=== PATIENT | female | born 1990 | race Caucasian/White ===

== ENCOUNTER 2021-01-21 06:41 | Observation (INO) | payer MEDICARE, MEDICAID ==
[2021-01-21] MEDS ORDERED: Morphine 4 MG/ML VIAL ONE (07:24)
[2021-01-21] MEDS ORDERED: Ketorolac Tromethamine 30 MG/ML VIAL ONE (07:24)
[2021-01-21] MEDS ORDERED: Ondansetron PF 4 MG/2 ML Vial ONE (07:24)
[2021-01-21 08:07] LABS: #Basophils 0.1 thou/uL (0.0-0.2); #Eosinphils 0.1 thou/uL (0.0-0.7); #Lymphocytes 3.2 thou/uL (1.20-3.40); #Monocytes 1.4 thou/uL (0.11-0.59); #Neutrophils 9.4 thou/uL (1.40-6.50); %Eosinophils 0.5 % (0.0-10.0); %Lymphocytes 22.5 % (21.0-51.0); %Monocytes 10.1 % (0.0-10.0); %Neutrophils 65.9 % (42.0-75.0); Hemoglobin 12.5 g/dL (12.0-16.0); Mean Corpuscular HGB CONC 31.8 g/dL (32.0-36.0); Mean Corpuscular Volume 94.4 fL (78.0-98.0); Mean Platelet Volume 6.5 fL (7.4-10.4); Platelet Count 400 thou/uL (130-400); RBC Distribution Width 12.6 % (11.5-14.5); Red Blood Cell (RBC) Count 4.18 mill/uL (4.20-5.40); White Blood Cell (WBC) Count 14.2 thou/uL (4.8-10.8)
[2021-01-21 08:18] LABS: BHCG - Serum Negative (NEGATIVE); Pregs Control Background? CLEAR/WHITE (CLR/WHITE); Pregs Control Bar Appear? YES (CONTROL BAR)
[2021-01-21 08:26] LABS: Anion Gap 16 mmol/L (10-20); BUN (Urea Nitrogen) 17 mg/dL (7.0-18.7); Calc. Creatinine Clearance 0 mL/min (70-130); Carbon Dioxide 21 mmol/L (22-29); Chloride 106 mmol/L (98-107); Potassium 3.6 mmol/L (3.5-5.1); Sodium 139 mmol/L (136-145)
[2021-01-21 08:27] LABS: ALT (SGPT) 9 U/L (8-55); AST (SGOT) 12 U/L (5-34); Albumin 3.7 g/dL (3.5-5.0); Alkaline Phosphatase 57 U/L (40-110); Bilirubin, Total 0.3 mg/dL (0.2-1.2); Calcium 8.6 mg/dL (7.8-10.44); Glucose 86 mg/dL (70-105); Lipase 45 U/L (8-78); Magnesium 1.7 mg/dL (1.6-2.6); Protein, Total 6.7 g/dL (6.0-8.3)
[2021-01-21 08:53] LABS: Bacteria/HPF 4+ HPF (None Seen); Bilirubin Negative (Negative); Blood, Urine 2+ (Negative); Clarity Turbid (Clear); Glucose, Urine (Dipstick) Normal (Negative); Ketone, Urine Negative (Negative); Leukocyte 500 Leu/uL (Negative); Nitrite 1+ (Negative); Protein, Urine (Dipstick) 30 mg/dL (Neg-Trace); RBC/HPF 21-50 HPF (0-3); Specific Gravity, Urine 1.019 (1.002-1.036); WBC/HPF Greater than 50 HPF (0-3); pH, Urine 6.5 (5.0-9.0)
[2021-01-21 08:55] LABS: Pregnancy Test - Urine (BHCG) Negative (Negative); Pregu Control Background? CLEAR/WHITE (CLR/WHITE); Pregu Control Bar Appear? YES (CONTROL BAR); Specific Gravity 1.019 (1.002-1.036)
[2021-01-21] MEDS ORDERED: Iopamidol-370 76% 500 ML 1 ML ONE (09:09)
[2021-01-21] MEDS ORDERED: cefTRIAXone\\ROCEPHIN 2 GM VIAL ONE (09:40)
[2021-01-21] MEDS ORDERED: Zolpidem Tartrate 5 MG TAB PO PRN (11:47)
[2021-01-21] MEDS ORDERED: diphenhydrAMINE 50 MG/ML VIAL IVP PRN (11:47)
[2021-01-21] MEDS ORDERED: Hyoscyamine Sulfate SL 0.125 mg Tablet SL PRN (11:47)
[2021-01-21] MEDS ORDERED: Ondansetron PF 4 MG/2 ML Vial IVP PRN (11:47)
[2021-01-21 12:14] VITALS: BMI 24.3
[2021-01-21 13:36] LABS: SARS-CoV-2 NAA Rapid Test Not Detected (NotDetected)
[2021-01-21] MEDS ORDERED: FLU VACC QS2021-22(6MOS UP)/PF 60 MCG/0.5 ML SYRINGE IM ONE (13:45)
[2021-01-21] MEDS: Sodium Chloride 0.9% 1,000 ML IV SCH ×2 (13:53→22:33)
[2021-01-21] MEDS: Ketorolac Tromethamine 30 MG/ML VIAL IVP SCH ×2 (13:54→17:31)
[2021-01-21] MEDS: HYDROcodone/Acetaminophen 5/325 mg Tablet PO PRN ×2 (13:54→17:36)
[2021-01-21] MEDS: Pilocarpine 5 MG TAB PO SCH ×2 (17:31→21:34)
[2021-01-21] MEDS ORDERED: Famotidine/PF 20 mg/2ml Vial SLOW IVP SCH (21:00)
[2021-01-21] MEDS: Morphine 4 MG/ML VIAL SLOW IVP PRN (21:14)
[2021-01-21] MEDS: Docusate 100 MG CAP PO SCH ×2 (21:25→21:35)
[2021-01-21] MEDS: Gabapentin 300 MG CAP PO SCH ×2 (21:25→21:35)
[2021-01-21] MEDS ORDERED: Promethazine HCl 25 MG/ML VIAL IM PRN (22:11)
[2021-01-21] MEDS ORDERED: Bismuth Subs 17.5 mg/mL Susp PO PRN (22:13)
[2021-01-22] MEDS: Ketorolac Tromethamine 30 MG/ML VIAL IVP SCH ×5 (00:01→23:17)
[2021-01-22 06:11] LABS: INR-International Normal Ratio 1.8; Prothrombin Time 21.3 sec (12.0-14.7)
[2021-01-22 06:25] LABS: Band 24 % (5-11); Hemoglobin 11.7 g/dL (12.0-16.0); Lymphocytes 4 % (21-51); MDiff Complete? YES; Mean Corpuscular HGB CONC 30.7 g/dL (32.0-36.0); Mean Corpuscular Hemoglobin 29.4 pg (27.0-31.0); Mean Corpuscular Volume 95.9 fL (78.0-98.0); Mean Platelet Volume 6.7 fL (7.4-10.4); Monocytes 1 % (0-10); Neutrophil 71 % (42-75); Platelet Count 259 thou/uL (130-400); Platelet Morphology Comment Appears Adequate; RBC Distribution Width 12.6 % (11.5-14.5); RBC Morphology Normal; Red Blood Cell (RBC) Count 3.98 mill/uL (4.20-5.40); White Blood Cell (WBC) Count 9.7 thou/uL (4.8-10.8)
[2021-01-22] MEDS ORDERED: Iothalamate Meglumine 60% 50 ML VIAL FS ONE (06:44)
[2021-01-22] MEDS ORDERED: Fentanyl 100 MCG/2 ML VIAL ONE (06:54)
[2021-01-22] MEDS ORDERED: Levofloxacin 500 mg/D5W 100 ml Premix Bag ONE (07:14)
[2021-01-22] MEDS ORDERED: Midazolam HCl 2 mg/2 ml Vial ONE (07:22)
[2021-01-22] MEDS ORDERED: Ondansetron ODT 4 MG TAB ONE (07:22)
[2021-01-22] MEDS: Sodium Chloride 0.9% 1,000 ML IV SCH ×3 (07:26→23:26)
[2021-01-22] MEDS ORDERED: PROPOFOL 200 MG/20 ML VIAL ONE (07:34)
[2021-01-22] MEDS ORDERED: Rocuronium Bromide 10 MG/ML (10ML VIAL) ONE (07:34)
[2021-01-22] MEDS ORDERED: Lidocaine 1% PF 5 ML VIAL ONE (07:34)
[2021-01-22] MEDS ORDERED: Ondansetron PF 4 MG/2 ML Vial ONE (07:34)
[2021-01-22] MEDS ORDERED: Dexamethasone 20 MG/5 ML VIAL ONE (07:34)
[2021-01-22] MEDS ORDERED: Glycopyrrolate 0.2 MG/ML 5 ML SYRINGE ONE (07:34)
[2021-01-22] MEDS ORDERED: Esmolol 100 MG/10 ML VIAL ONE (08:26)
[2021-01-22] MEDS ORDERED: Hydroxychloroquine Sulfate 200 MG TAB PO SCH ×2 (09:00→23:00)
[2021-01-22] MEDS: NIFEdipine 10 MG CAP PO SCH (09:28)
[2021-01-22] MEDS: Docusate 100 MG CAP PO SCH ×2 (09:28→20:59)
[2021-01-22] MEDS: Pilocarpine 5 MG TAB PO SCH ×3 (09:29→20:59)
[2021-01-22] MEDS: Bupropion 150 MG XL TAB PO SCH (09:29)
[2021-01-22] MEDS: Aspirin 81 mg Enteric Coated Tablet PO SCH (09:29)
[2021-01-22] MEDS: Gabapentin 300 MG CAP PO SCH ×2 (09:29→20:59)
[2021-01-22] MEDS: Tamsulosin HCl 0.4 MG CAP PO SCH (09:29)
[2021-01-22] MEDS: methylPREDNISolone 4 mg Tablet PO SCH (09:29)
[2021-01-22] MEDS: medroxyPROGESTERone Acetate 5 MG TAB PO SCH (09:30)
[2021-01-22] MEDS: HYDROcodone/Acetaminophen 5/325 mg Tablet PO PRN (11:16)
[2021-01-22] MEDS ORDERED: Warfarin Sodium 3 MG TAB PO SCH ×2 (17:00)
[2021-01-22] MEDS: Morphine 4 MG/ML VIAL SLOW IVP PRN (21:01)
[2021-01-22] MEDS ORDERED: Cepastat Lozenges 1 LOZ PO PRN (22:26)
[2021-01-22] MEDS ORDERED: PARoxetine 20 MG TAB ONE ×2 (22:54→23:14)
[2021-01-23] MEDS: Morphine 4 MG/ML VIAL SLOW IVP PRN ×2 (04:03→08:22)
[2021-01-23 06:26] LABS: Prothrombin Time 22.6 sec (12.0-14.7)
[2021-01-23] MEDS: Ketorolac Tromethamine 30 MG/ML VIAL IVP SCH ×2 (06:42→11:09)
[2021-01-23] MEDS: Gabapentin 300 MG CAP PO SCH (08:18)
[2021-01-23] MEDS: NIFEdipine 10 MG CAP PO SCH (08:18)
[2021-01-23] MEDS: Aspirin 81 mg Enteric Coated Tablet PO SCH (08:18)
[2021-01-23] MEDS: medroxyPROGESTERone Acetate 5 MG TAB PO SCH (08:18)
[2021-01-23] MEDS: Docusate 100 MG CAP PO SCH (08:19)
[2021-01-23] MEDS: Bupropion 150 MG XL TAB PO SCH (08:19)
[2021-01-23] MEDS: methylPREDNISolone 4 mg Tablet PO SCH (08:19)
[2021-01-23] MEDS: Pilocarpine 5 MG TAB PO SCH ×2 (08:19→14:27)
[2021-01-23] MEDS: Tamsulosin HCl 0.4 MG CAP PO SCH (08:19)
[2021-01-23] MEDS ORDERED: Hydroxychloroquine Sulfate 200 MG TAB PO SCH (09:00)
[2021-01-23] MEDS: HYDROcodone/Acetaminophen 5/325 mg Tablet PO PRN (11:09)
[2021-01-23] MEDS: Sodium Chloride 0.9% 1,000 ML IV SCH (12:53)
[2021-01-23 15:00] VITALS: BP 142/82; TEMP 98.1
[2021-01-27 18:14] LABS: CA Oxalate Dihydrate 10 % (.); CA Oxalate Monohydrate 60 % (.); Color Tan (.); Stone Weight 23 mg (.)
== END 2021-01-23 14:40 | disposition home or self-care (01) ==
LOC: ERS 06:41 → ERHOLD 09:19 → INTOOBSV 09:19 → SURG B 12:53
PROVIDERS: ADMIT Urology; ATTEND Urology
PROC: 0TC48ZZ Extirpation of Matter from Left Kidney Pelvis, Via Natural or Artificial Opening Endoscopic (ICD-10-PCS; principal; 2021-01-22)
PROC: 0TC78ZZ Extirpation of Matter from Left Ureter, Via Natural or Artificial Opening Endoscopic (ICD-10-PCS; 2021-01-22)
PROC: 0T778DZ Dilation of Left Ureter with Intraluminal Device, Via Natural or Artificial Opening Endoscopic (ICD-10-PCS; 2021-01-22)
DX: N13.6 Pyonephrosis (principal); I73.00 Raynaud's syndrome without gangrene; M32.9 Systemic lupus erythematosus, unspecified; M35.00 Sjogren syndrome, unspecified; D68.61 Antiphospholipid syndrome; Z20.822 Contact with and (suspected) exposure to COVID-19; Z88.1 Allergy status to other antibiotic agents; Z88.2 Allergy status to sulfonamides; Z79.1 Long term (current) use of non-steroidal anti-inflammatories (NSAID); Z79.2 Long term (current) use of antibiotics; Z79.890 Hormone replacement therapy; Z79.01 Long term (current) use of anticoagulants; Z79.82 Long term (current) use of aspirin; Z79.52 Long term (current) use of systemic steroids; Z79.899 Other long term (current) drug therapy; Z89.511 Acquired absence of right leg below knee
CPT/HCPCS: 51701 ×2; 52356; 74177; 74420; 80053; 81025; 82365; 83690; 83735; 84703; 85025 ×2; 85610 ×2; 87077; 87086; 87186; 96365; 96367; 96375 ×2; 96376 ×3; 97139 ×2; 97530; 99285; C2617; G0378 ×4; Q9961; U0002; 36415; 81003; 81015; 88300; J0696; J1100; J1885; J1956; J2250; J2270; J2405; J2550; J2704; J3010; J7050; J7509; Q0162; Q9967

== ENCOUNTER 2021-01-24 13:34 | Emergency (ER) | payer MEDICARE, MEDICAID | END 2021-01-24 16:12 | disposition home or self-care (01) | LOC: ERS 13:34 | DX: M54.50 Low back pain, unspecified (principal); M53.3 Sacrococcygeal disorders, not elsewhere classified; W19.XXXA Unspecified fall, initial encounter | CPT/HCPCS: 72100; 72220 ==

== ENCOUNTER 2021-04-15 21:48 | Inpatient (IN) | payer MEDICARE, MEDICAID ==
[2021-04-15 22:42] LABS: #Basophils 0.1 thou/uL (0.0-0.2); #Eosinphils 0.2 thou/uL (0.0-0.7); #Lymphocytes 3.4 thou/uL (1.20-3.40); #Monocytes 1.4 thou/uL (0.11-0.59); #Neutrophils 13.2 thou/uL (1.40-6.50); %Basophils 0.6 % (0.0-1.0); %Lymphocytes 18.5 % (21.0-51.0); %Monocytes 7.6 % (0.0-10.0); %Neutrophils 72.3 % (42.0-75.0); Hemoglobin 11.1 g/dL (12.0-16.0); Mean Corpuscular HGB CONC 31.1 g/dL (32.0-36.0); Mean Corpuscular Hemoglobin 31.1 pg (27.0-31.0); Mean Platelet Volume 5.7 fL (7.4-10.4); Platelet Count 430 thou/uL (130-400); RBC Distribution Width 13.9 % (11.5-14.5); Red Blood Cell (RBC) Count 3.58 mill/uL (4.20-5.40); White Blood Cell (WBC) Count 18.2 thou/uL (4.8-10.8)
[2021-04-15 22:51] LABS: BHCG - Serum Negative (NEGATIVE); Pregs Control Background? CLEAR/WHITE (CLR/WHITE); Pregs Control Bar Appear? YES (CONTROL BAR)
[2021-04-15 23:01] LABS: INR-International Normal Ratio 18.2
[2021-04-15] MEDS ORDERED: diphenhydrAMINE 50 MG/ML VIAL ONE (23:06)
[2021-04-15] MEDS ORDERED: Metoclopramide HCl 10 MG/2 ML VIAL ONE (23:06)
[2021-04-15 23:54] LABS: ALT (SGPT) 13 U/L (8-55); AST (SGOT) 14 U/L (5-34); Albumin 3.3 g/dL (3.5-5.0); Alkaline Phosphatase 50 U/L (40-110); Anion Gap 15 mmol/L (10-20); BUN (Urea Nitrogen) 16 mg/dL (7.0-18.7); Bilirubin, Total 0.3 mg/dL (0.2-1.2); Calc. Creatinine Clearance 0 mL/min (70-130); Calcium 8.5 mg/dL (7.8-10.44); Carbon Dioxide 17 mmol/L (22-29); Chloride 110 mmol/L (98-107); Glucose 78 mg/dL (70-105); Potassium 3.8 mmol/L (3.5-5.1); Protein, Total 6.3 g/dL (6.0-8.3); Sodium 138 mmol/L (136-145)
[2021-04-16] MEDS ORDERED: Phytonadione 10 MG/ML AMP ONE (00:06)
[2021-04-16] MEDS ORDERED: Acetaminophen 325 MG TAB PO PRN ×2 (01:17→08:07)
[2021-04-16] MEDS ORDERED: Ondansetron ODT 4 MG TAB PO PRN (01:17)
[2021-04-16] MEDS ORDERED: Acetaminophen 650 MG Suppository PR PRN (01:17)
[2021-04-16] MEDS ORDERED: Ondansetron PF 4 MG/2 ML Vial IVP PRN (01:17)
[2021-04-16 01:35] LABS: Bilirubin Negative (Negative); Blood, Urine Negative (Negative); Clarity Clear (Clear); Glucose, Urine (Dipstick) Normal (Negative); Ketone, Urine Negative (Negative); Leukocyte Negative Leu/uL (Negative); Nitrite Negative (Negative); Protein, Urine (Dipstick) 20 mg/dL (Neg-Trace); Specific Gravity, Urine 1.036 (1.002-1.036); Urobilinogen Normal mg/dL (Less than 2); pH, Urine 6.5 (5.0-9.0)
[2021-04-16] MEDS ORDERED: Acetaminophen 325 MG TAB ONE (01:41)
[2021-04-16] MEDS ORDERED: Ondansetron ODT 4 MG TAB ONE (02:16)
[2021-04-16] MEDS ORDERED: Morphine 4 MG/ML VIAL SLOW IVP PRN (05:19)
[2021-04-16] MEDS ORDERED: Morphine 4 MG/ML VIAL ONE (06:00)
[2021-04-16 08:46] LABS: #Eosinphils 0.1 thou/uL (0.0-0.7); #Lymphocytes 1.9 thou/uL (1.20-3.40); #Neutrophils 15.2 thou/uL (1.40-6.50); %Basophils 0.2 % (0.0-1.0); %Eosinophils 0.6 % (0.0-10.0); %Lymphocytes 10.3 % (21.0-51.0); %Monocytes 5.6 % (0.0-10.0); %Neutrophils 83.3 % (42.0-75.0); Hemoglobin 11.1 g/dL (12.0-16.0); Mean Corpuscular HGB CONC 30.5 g/dL (32.0-36.0); Mean Corpuscular Hemoglobin 30.4 pg (27.0-31.0); Mean Corpuscular Volume 99.7 fL (78.0-98.0); Mean Platelet Volume 5.6 fL (7.4-10.4); Platelet Count 425 thou/uL (130-400); RBC Distribution Width 13.8 % (11.5-14.5); Red Blood Cell (RBC) Count 3.66 mill/uL (4.20-5.40); White Blood Cell (WBC) Count 18.3 thou/uL (4.8-10.8)
[2021-04-16 09:05] LABS: Anion Gap 14 mmol/L (10-20); BUN (Urea Nitrogen) 14 mg/dL (7.0-18.7); Calc. Creatinine Clearance 0 mL/min (70-130); Calcium 8.7 mg/dL (7.8-10.44); Carbon Dioxide 19 mmol/L (22-29); Chloride 109 mmol/L (98-107); Glucose 85 mg/dL (70-105); Potassium 3.7 mmol/L (3.5-5.1); Sodium 138 mmol/L (136-145)
[2021-04-16] MEDS ORDERED: HYDROcodone/Acetaminophen 5/325 mg Tablet PO PRN (10:52)
[2021-04-16] MEDS: HYDROcodone/Acetaminophen 5/325 mg Tablet PO PRN ×2 (13:08→22:02)
[2021-04-16 15:17] LABS: SARS-CoV-2 PCR by NAA Not Detected (NotDetected)
[2021-04-16 16:54] LABS: INR-International Normal Ratio 1.8
[2021-04-16 16:56] LABS: PTT 62.8 sec (22.9-36.1)
[2021-04-16] MEDS: Morphine 4 MG/ML VIAL SLOW IVP PRN (17:22)
[2021-04-16] MEDS: Pilocarpine 5 MG TAB PO SCH ×2 (19:51→21:34)
[2021-04-16] MEDS: Hydroxychloroquine Sulfate 200 MG TAB PO SCH (21:33)
[2021-04-16] MEDS: Gabapentin 300 MG CAP PO SCH (21:33)
[2021-04-16] MEDS: hydrALAZINE 20 MG/ML VIAL SLOW IVP PRN (21:37)
[2021-04-17] MEDS: HYDROcodone/Acetaminophen 5/325 mg Tablet PO PRN ×3 (05:32→21:09)
[2021-04-17] MEDS ORDERED: Aspirin 81 mg Enteric Coated Tablet PO SCH (09:00)
[2021-04-17] MEDS: Ondansetron PF 4 MG/2 ML Vial IVP PRN ×2 (09:13→17:51)
[2021-04-17] MEDS: Gabapentin 300 MG CAP PO SCH ×2 (09:14→21:08)
[2021-04-17] MEDS: Bupropion 150 MG XL TAB PO SCH (09:14)
[2021-04-17] MEDS: NIFEdipine XL 30 MG TAB PO SCH (09:15)
[2021-04-17] MEDS: hydrALAZINE 20 MG/ML VIAL SLOW IVP PRN (11:30)
[2021-04-17] MEDS: Hydroxychloroquine Sulfate 200 MG TAB PO SCH ×2 (11:35→21:59)
[2021-04-17] MEDS: methylPREDNISolone 4 mg Tablet PO SCH (11:35)
[2021-04-17] MEDS: Pilocarpine 5 MG TAB PO SCH ×3 (15:01→21:59)
[2021-04-17] MEDS: Warfarin Sodium 3 MG TAB PO SCH (17:49)
[2021-04-17] MEDS: Sodium Chloride 0.9% 1,000 ML IV SCH (17:49)
[2021-04-17] MEDS: Morphine 4 MG/ML VIAL SLOW IVP PRN (17:50)
[2021-04-17 18:14] LABS: Hemoglobin 11.9 g/dL (12.0-16.0); Mean Corpuscular HGB CONC 31.3 g/dL (32.0-36.0); Mean Corpuscular Hemoglobin 30.6 pg (27.0-31.0); Mean Corpuscular Volume 97.7 fL (78.0-98.0); Mean Platelet Volume 5.5 fL (7.4-10.4); Platelet Count 493 thou/uL (130-400); RBC Distribution Width 13.8 % (11.5-14.5); Red Blood Cell (RBC) Count 3.88 mill/uL (4.20-5.40); White Blood Cell (WBC) Count 20.8 thou/uL (4.8-10.8)
[2021-04-17 18:25] LABS: INR-International Normal Ratio 1.7; Prothrombin Time 19.9 sec (12.0-14.7)
[2021-04-17 18:33] LABS: Anion Gap 21 mmol/L (10-20); BUN (Urea Nitrogen) 9 mg/dL (7.0-18.7); Calc. Creatinine Clearance 138 mL/min (70-130); Calcium 9.8 mg/dL (7.8-10.44); Carbon Dioxide 14 mmol/L (22-29); Chloride 100 mmol/L (98-107); Glucose 99 mg/dL (70-105); Potassium 3.8 mmol/L (3.5-5.1); Sodium 131 mmol/L (136-145)
[2021-04-17 18:41] LABS: Band 1 % (5-11); Eosinophils 2 % (0-10); Lymphocytes 7 % (21-51); MDiff Complete? YES; Monocytes 9 % (0-10); Neutrophil 81 % (42-75); Platelet Morphology Comment Appears Increased; RBC Morphology Normal
[2021-04-17] MEDS ORDERED: Magnesium 2 GM/50 ML 2 GM in Premix Bag 1 BAG IVPB SCH (22:00)
[2021-04-17] MEDS ORDERED: Dexamethasone 4 mg/ml Vial SLOW IVP SCH (22:00)
[2021-04-17] MEDS ORDERED: Prochlorperazine Edisylate 10 MG in Sodium Chloride 0.9% 50 ML IVPB SCH (22:30)
[2021-04-17] MEDS ORDERED: Valproate Sodium 500 MG in Sodium Chloride 0.9% 100 ML IVPB SCH (22:30)
[2021-04-18] MEDS ORDERED: Metoprolol Tartrate 25 MG TAB PO SCH (01:00)
[2021-04-18 06:25] LABS: #Eosinphils 0.1 thou/uL (0.0-0.7); #Lymphocytes 0.7 thou/uL (1.20-3.40); #Monocytes 0.6 thou/uL (0.11-0.59); #Neutrophils 16.5 thou/uL (1.40-6.50); %Basophils 0.1 % (0.0-1.0); %Eosinophils 0.3 % (0.0-10.0); %Lymphocytes 3.7 % (21.0-51.0); %Monocytes 3.3 % (0.0-10.0); %Neutrophils 92.6 % (42.0-75.0); Hemoglobin 12.2 g/dL (12.0-16.0); Mean Corpuscular HGB CONC 30.9 g/dL (32.0-36.0); Mean Corpuscular Hemoglobin 30.1 pg (27.0-31.0); Mean Corpuscular Volume 97.2 fL (78.0-98.0); Mean Platelet Volume 5.5 fL (7.4-10.4); Platelet Count 501 thou/uL (130-400); RBC Distribution Width 13.9 % (11.5-14.5); Red Blood Cell (RBC) Count 4.07 mill/uL (4.20-5.40); White Blood Cell (WBC) Count 17.9 thou/uL (4.8-10.8)
[2021-04-18 06:40] LABS: INR-International Normal Ratio 1.9; Prothrombin Time 22.5 sec (12.0-14.7)
[2021-04-18 06:41] LABS: PTT 71.1 sec (22.9-36.1)
[2021-04-18 06:47] LABS: Anion Gap 17 mmol/L (10-20); BUN (Urea Nitrogen) 9 mg/dL (7.0-18.7); Calc. Creatinine Clearance 136 mL/min (70-130); Calcium 9.8 mg/dL (7.8-10.44); Carbon Dioxide 16 mmol/L (22-29); Chloride 106 mmol/L (98-107); Glucose 120 mg/dL (70-105); Sodium 135 mmol/L (136-145)
[2021-04-18] MEDS: Hydroxychloroquine Sulfate 200 MG TAB PO SCH ×2 (08:42→20:38)
[2021-04-18] MEDS: Pilocarpine 5 MG TAB PO SCH ×3 (08:42→20:38)
[2021-04-18] MEDS: HYDROcodone/Acetaminophen 5/325 mg Tablet PO PRN ×2 (08:43→15:49)
[2021-04-18] MEDS: Gabapentin 300 MG CAP PO SCH ×2 (08:44→20:37)
[2021-04-18] MEDS: Metoprolol Tartrate 25 MG TAB PO SCH ×2 (08:44→20:38)
[2021-04-18] MEDS: NIFEdipine XL 30 MG TAB PO SCH (08:48)
[2021-04-18] MEDS: Bupropion 150 MG XL TAB PO SCH (10:49)
[2021-04-18] MEDS: methylPREDNISolone 4 mg Tablet PO SCH (10:49)
[2021-04-18] MEDS: SUMAtriptan Succinate 50 MG TAB PO PRN ×2 (10:52→23:49)
[2021-04-18] MEDS: Sodium Chloride 0.9% 1,000 ML IV SCH ×2 (13:07→18:44)
[2021-04-18] MEDS ORDERED: Valproate Sodium 500 MG in Sodium Chloride 0.9% 100 ML IVPB SCH (13:15)
[2021-04-18] MEDS: Labetalol HCl 100 MG/20 ML VIAL SLOW IVP PRN ×2 (14:02→16:57)
[2021-04-18] MEDS: Morphine 4 MG/ML VIAL SLOW IVP PRN ×2 (14:03→20:38)
[2021-04-18] MEDS: Ondansetron ODT 4 MG TAB PO PRN (14:09)
[2021-04-18] MEDS: Warfarin Sodium 3 MG TAB PO SCH (16:58)
[2021-04-18] MEDS: Cyclobenzaprine 10 MG TAB PO PRN (23:49)
[2021-04-19] MEDS: HYDROcodone/Acetaminophen 5/325 mg Tablet PO PRN ×4 (02:29→20:48)
[2021-04-19 07:23] LABS: #Basophils 0.1 thou/uL (0.0-0.2); #Eosinphils 0.1 thou/uL (0.0-0.7); #Lymphocytes 2.8 thou/uL (1.20-3.40); #Monocytes 1.8 thou/uL (0.11-0.59); #Neutrophils 10.7 thou/uL (1.40-6.50); %Basophils 0.5 % (0.0-1.0); %Eosinophils 0.6 % (0.0-10.0); %Monocytes 11.5 % (0.0-10.0); %Neutrophils 69.4 % (42.0-75.0); Hemoglobin 10.6 g/dL (12.0-16.0); Mean Corpuscular HGB CONC 30.5 g/dL (32.0-36.0); Mean Corpuscular Volume 98.1 fL (78.0-98.0); Mean Platelet Volume 5.7 fL (7.4-10.4); Platelet Count 473 thou/uL (130-400); Red Blood Cell (RBC) Count 3.54 mill/uL (4.20-5.40); White Blood Cell (WBC) Count 15.5 thou/uL (4.8-10.8)
[2021-04-19 07:35] LABS: INR-International Normal Ratio 2.6; Prothrombin Time 28.6 sec (12.0-14.7)
[2021-04-19 07:37] LABS: PTT 70.3 sec (22.9-36.1)
[2021-04-19 07:42] LABS: Anion Gap 12 mmol/L (10-20); BUN (Urea Nitrogen) 11 mg/dL (7.0-18.7); Calc. Creatinine Clearance 129 mL/min (70-130); Calcium 9.4 mg/dL (7.8-10.44); Carbon Dioxide 20 mmol/L (22-29); Chloride 108 mmol/L (98-107); Glucose 85 mg/dL (70-105); Potassium 3.3 mmol/L (3.5-5.1); Sodium 137 mmol/L (136-145)
[2021-04-19] MEDS: methylPREDNISolone 4 mg Tablet PO SCH (08:37)
[2021-04-19] MEDS: Hydroxychloroquine Sulfate 200 MG TAB PO SCH ×2 (08:37→20:47)
[2021-04-19] MEDS: Bupropion 150 MG XL TAB PO SCH (08:38)
[2021-04-19] MEDS: Pilocarpine 5 MG TAB PO SCH ×3 (08:41→20:49)
[2021-04-19] MEDS: Metoprolol Tartrate 25 MG TAB PO SCH ×2 (08:41→20:44)
[2021-04-19] MEDS: Gabapentin 300 MG CAP PO SCH ×2 (08:41→20:47)
[2021-04-19] MEDS: NIFEdipine XL 30 MG TAB PO SCH (08:41)
[2021-04-19] MEDS ORDERED: Potassium Chloride 20 MEQ TAB PO SCH (10:30)
[2021-04-19] MEDS: Morphine 4 MG/ML VIAL SLOW IVP PRN ×2 (11:56→23:00)
[2021-04-19] MEDS: Ondansetron ODT 4 MG TAB PO PRN (11:58)
[2021-04-19] MEDS: Sodium Chloride 0.9% 1,000 ML IV SCH (12:03)
[2021-04-19] MEDS ORDERED: Warfarin Sodium 3 MG TAB PO SCH (17:00)
[2021-04-19] MEDS: Ondansetron PF 4 MG/2 ML Vial IVP PRN (20:44)
[2021-04-20] MEDS: Morphine 4 MG/ML VIAL SLOW IVP PRN ×2 (04:06→12:28)
[2021-04-20 05:58] LABS: #Basophils 0.1 thou/uL (0.0-0.2); #Eosinphils 0.1 thou/uL (0.0-0.7); #Lymphocytes 2.6 thou/uL (1.20-3.40); #Monocytes 1.6 thou/uL (0.11-0.59); %Basophils 0.8 % (0.0-1.0); %Eosinophils 0.9 % (0.0-10.0); %Lymphocytes 20.8 % (21.0-51.0); %Monocytes 13.1 % (0.0-10.0); %Neutrophils 64.4 % (42.0-75.0); Hemoglobin 10.4 g/dL (12.0-16.0); Mean Corpuscular Hemoglobin 30.4 pg (27.0-31.0); Mean Corpuscular Volume 98.3 fL (78.0-98.0); Mean Platelet Volume 5.5 fL (7.4-10.4); Platelet Count 457 thou/uL (130-400); RBC Distribution Width 13.7 % (11.5-14.5); Red Blood Cell (RBC) Count 3.43 mill/uL (4.20-5.40); White Blood Cell (WBC) Count 12.5 thou/uL (4.8-10.8)
[2021-04-20 06:11] LABS: INR-International Normal Ratio 2.4; Prothrombin Time 26.8 sec (12.0-14.7)
[2021-04-20 06:13] LABS: PTT 73.4 sec (22.9-36.1)
[2021-04-20 06:20] LABS: Anion Gap 14 mmol/L (10-20); BUN (Urea Nitrogen) 8 mg/dL (7.0-18.7); Calc. Creatinine Clearance 145 mL/min (70-130); Calcium 8.8 mg/dL (7.8-10.44); Carbon Dioxide 21 mmol/L (22-29); Chloride 105 mmol/L (98-107); Glucose 91 mg/dL (70-105); Potassium 3.6 mmol/L (3.5-5.1); Sodium 136 mmol/L (136-145)
[2021-04-20] MEDS: HYDROcodone/Acetaminophen 5/325 mg Tablet PO PRN ×3 (07:55→21:00)
[2021-04-20] MEDS: Metoprolol Tartrate 25 MG TAB PO SCH ×2 (07:57→20:59)
[2021-04-20] MEDS: Bupropion 150 MG XL TAB PO SCH (07:57)
[2021-04-20] MEDS: Gabapentin 300 MG CAP PO SCH ×2 (07:57→20:59)
[2021-04-20] MEDS: NIFEdipine XL 30 MG TAB PO SCH ×2 (07:58→10:20)
[2021-04-20] MEDS: Hydroxychloroquine Sulfate 200 MG TAB PO SCH ×2 (07:59→20:58)
[2021-04-20] MEDS: methylPREDNISolone 4 mg Tablet PO SCH (07:59)
[2021-04-20] MEDS: Pilocarpine 5 MG TAB PO SCH ×3 (07:59→20:59)
[2021-04-20] MEDS ORDERED: NIFEdipine XL 30 MG TAB PO SCH (08:45)
[2021-04-20] MEDS: Warfarin Sodium 2 MG TAB PO SCH (16:03)
[2021-04-20] MEDS: SUMAtriptan Succinate 50 MG TAB PO PRN (20:59)
[2021-04-20] MEDS: Ondansetron PF 4 MG/2 ML Vial IVP PRN (23:00)
[2021-04-21] MEDS: HYDROcodone/Acetaminophen 5/325 mg Tablet PO PRN ×5 (01:47→20:18)
[2021-04-21 05:52] LABS: INR-International Normal Ratio 2.1; Prothrombin Time 23.5 sec (12.0-14.7)
[2021-04-21 05:53] LABS: PTT 68.3 sec (22.9-36.1)
[2021-04-21] MEDS: Bupropion 150 MG XL TAB PO SCH (08:22)
[2021-04-21] MEDS: NIFEdipine XL 60 MG TAB PO SCH (08:23)
[2021-04-21] MEDS: Metoprolol Tartrate 25 MG TAB PO SCH ×2 (08:24→20:18)
[2021-04-21] MEDS: Gabapentin 300 MG CAP PO SCH ×2 (08:24→20:17)
[2021-04-21] MEDS: Hydroxychloroquine Sulfate 200 MG TAB PO SCH ×2 (08:24→20:19)
[2021-04-21] MEDS: Pilocarpine 5 MG TAB PO SCH ×3 (08:27→20:19)
[2021-04-21] MEDS: methylPREDNISolone 4 mg Tablet PO SCH (08:27)
[2021-04-21] MEDS: Ondansetron PF 4 MG/2 ML Vial IVP PRN ×2 (09:53→16:31)
[2021-04-21] MEDS: Warfarin Sodium 2 MG TAB PO SCH (16:31)
[2021-04-21] MEDS: SUMAtriptan Succinate 50 MG TAB PO PRN (20:19)
[2021-04-21] MEDS: Cyclobenzaprine 10 MG TAB PO PRN (22:35)
[2021-04-22] MEDS: HYDROcodone/Acetaminophen 5/325 mg Tablet PO PRN ×4 (05:01→21:10)
[2021-04-22] MEDS: NIFEdipine XL 60 MG TAB PO SCH (09:35)
[2021-04-22] MEDS: Pilocarpine 5 MG TAB PO SCH ×3 (09:36→21:11)
[2021-04-22] MEDS: Gabapentin 300 MG CAP PO SCH ×2 (09:36→21:10)
[2021-04-22] MEDS: Bupropion 150 MG XL TAB PO SCH (09:36)
[2021-04-22] MEDS: Hydroxychloroquine Sulfate 200 MG TAB PO SCH ×2 (09:36→21:11)
[2021-04-22] MEDS: Metoprolol Tartrate 25 MG TAB PO SCH ×2 (09:37→21:13)
[2021-04-22] MEDS: methylPREDNISolone 4 mg Tablet PO SCH (09:37)
[2021-04-22 10:39] LABS: INR-International Normal Ratio 2.1; Prothrombin Time 24.3 sec (12.0-14.7)
[2021-04-22] MEDS: Ondansetron PF 4 MG/2 ML Vial IVP PRN ×2 (11:44→21:09)
[2021-04-22 15:41] LABS: Hemoglobin A1c 4.7 % (4.0-6.0)
[2021-04-22 15:53] LABS: Cardiac Risk 3.9 (Less than 4.5)
[2021-04-22] MEDS: Warfarin Sodium 2 MG TAB PO SCH (16:47)
[2021-04-22] MEDS ORDERED: Polyethylene Glycol 3350 17 GM Packet PO SCH (20:00)
[2021-04-22 20:53] LABS: SARS-CoV-2 PCR by NAA Not Detected (NotDetected)
[2021-04-23] MEDS: HYDROcodone/Acetaminophen 5/325 mg Tablet PO PRN ×4 (01:19→20:04)
[2021-04-23 06:03] LABS: INR-International Normal Ratio 2.3; Prothrombin Time 25.9 sec (12.0-14.7)
[2021-04-23] MEDS: Ondansetron PF 4 MG/2 ML Vial IVP PRN ×2 (08:44→14:32)
[2021-04-23] MEDS: Gabapentin 300 MG CAP PO SCH ×2 (08:47→20:04)
[2021-04-23] MEDS: Pilocarpine 5 MG TAB PO SCH ×3 (08:47→20:04)
[2021-04-23] MEDS: NIFEdipine XL 60 MG TAB PO SCH (08:47)
[2021-04-23] MEDS: Hydroxychloroquine Sulfate 200 MG TAB PO SCH ×2 (08:47→20:04)
[2021-04-23] MEDS: methylPREDNISolone 4 mg Tablet PO SCH (08:47)
[2021-04-23] MEDS: Metoprolol Tartrate 25 MG TAB PO SCH ×2 (08:48→20:04)
[2021-04-23] MEDS: Bupropion 150 MG XL TAB PO SCH (08:48)
[2021-04-23] MEDS ORDERED: Magnevist 469MG/ML 20 ML VIAL ONE (09:35)
[2021-04-23 12:40] LABS: #Basophils 0.1 thou/uL (0.0-0.2); #Eosinphils 0.2 thou/uL (0.0-0.7); #Lymphocytes 1.5 thou/uL (1.20-3.40); #Monocytes 1.4 thou/uL (0.11-0.59); #Neutrophils 15.5 thou/uL (1.40-6.50); %Basophils 0.5 % (0.0-1.0); %Monocytes 7.5 % (0.0-10.0); %Neutrophils 82.9 % (42.0-75.0); Hemoglobin 11.5 g/dL (12.0-16.0); Mean Corpuscular HGB CONC 31.7 g/dL (32.0-36.0); Mean Corpuscular Hemoglobin 30.6 pg (27.0-31.0); Mean Corpuscular Volume 96.4 fL (78.0-98.0); Platelet Count 507 thou/uL (130-400); RBC Distribution Width 13.2 % (11.5-14.5); Red Blood Cell (RBC) Count 3.77 mill/uL (4.20-5.40); White Blood Cell (WBC) Count 18.7 thou/uL (4.8-10.8)
[2021-04-23 12:57] LABS: Anion Gap 14 mmol/L (10-20); BUN (Urea Nitrogen) 9 mg/dL (7.0-18.7); Calc. Creatinine Clearance 141 mL/min (70-130); Calcium 9.4 mg/dL (7.8-10.44); Carbon Dioxide 20 mmol/L (22-29); Chloride 103 mmol/L (98-107); Glucose 92 mg/dL (70-105); Potassium 3.9 mmol/L (3.5-5.1); Sodium 133 mmol/L (136-145)
[2021-04-23] MEDS: Warfarin Sodium 2 MG TAB PO SCH (16:22)
[2021-04-24] MEDS: HYDROcodone/Acetaminophen 5/325 mg Tablet PO PRN ×3 (04:47→20:41)
[2021-04-24 06:27] LABS: INR-International Normal Ratio 2.2; Prothrombin Time 24.6 sec (12.0-14.7)
[2021-04-24] MEDS: Pilocarpine 5 MG TAB PO SCH ×3 (08:36→20:41)
[2021-04-24] MEDS: Bupropion 150 MG XL TAB PO SCH (08:36)
[2021-04-24] MEDS: Gabapentin 300 MG CAP PO SCH ×2 (08:36→20:40)
[2021-04-24] MEDS: methylPREDNISolone 4 mg Tablet PO SCH (08:37)
[2021-04-24] MEDS: Hydroxychloroquine Sulfate 200 MG TAB PO SCH ×2 (08:37→20:41)
[2021-04-24] MEDS: Metoprolol Tartrate 25 MG TAB PO SCH ×2 (08:37→20:41)
[2021-04-24] MEDS: NIFEdipine XL 60 MG TAB PO SCH (08:37)
[2021-04-24] MEDS: Warfarin Sodium 2 MG TAB PO SCH (18:03)
[2021-04-24] MEDS: Cyclobenzaprine 10 MG TAB PO PRN (20:41)
[2021-04-25] MEDS: HYDROcodone/Acetaminophen 5/325 mg Tablet PO PRN ×5 (02:02→22:23)
[2021-04-25 05:47] LABS: INR-International Normal Ratio 2.2; Prothrombin Time 24.9 sec (12.0-14.7)
[2021-04-25] MEDS: Gabapentin 300 MG CAP PO SCH ×2 (08:14→20:48)
[2021-04-25] MEDS: Hydroxychloroquine Sulfate 200 MG TAB PO SCH ×2 (08:14→20:48)
[2021-04-25] MEDS: methylPREDNISolone 4 mg Tablet PO SCH (08:16)
[2021-04-25] MEDS: Bupropion 150 MG XL TAB PO SCH (08:16)
[2021-04-25] MEDS: Ondansetron PF 4 MG/2 ML Vial IVP PRN ×2 (08:16→13:52)
[2021-04-25] MEDS: NIFEdipine XL 60 MG TAB PO SCH (08:16)
[2021-04-25] MEDS: Metoprolol Tartrate 25 MG TAB PO SCH (08:16)
[2021-04-25] MEDS: Pilocarpine 5 MG TAB PO SCH ×3 (08:16→20:48)
[2021-04-25 14:24] LABS: #Basophils 0.1 thou/uL (0.0-0.2); #Eosinphils 0.1 thou/uL (0.0-0.7); #Lymphocytes 1.4 thou/uL (1.20-3.40); #Monocytes 1.5 thou/uL (0.11-0.59); #Neutrophils 13.1 thou/uL (1.40-6.50); %Basophils 0.4 % (0.0-1.0); %Eosinophils 0.5 % (0.0-10.0); %Lymphocytes 8.9 % (21.0-51.0); %Monocytes 9.4 % (0.0-10.0); %Neutrophils 80.8 % (42.0-75.0); Hemoglobin 12.8 g/dL (12.0-16.0); Mean Corpuscular HGB CONC 31.4 g/dL (32.0-36.0); Mean Corpuscular Hemoglobin 30.4 pg (27.0-31.0); Mean Corpuscular Volume 96.8 fL (78.0-98.0); Mean Platelet Volume 6.2 fL (7.4-10.4); Platelet Count 399 thou/uL (130-400); RBC Distribution Width 13.3 % (11.5-14.5); White Blood Cell (WBC) Count 16.2 thou/uL (4.8-10.8)
[2021-04-25] MEDS ORDERED: diphenhydrAMINE 25 MG in Sodium Chloride 0.9% 50 ML IVPB PRN (15:47)
[2021-04-25] MEDS: Sodium Chloride 0.9% 1,000 ML IV SCH (15:53)
[2021-04-25] MEDS: Warfarin Sodium 2 MG TAB PO SCH (16:00)
[2021-04-25] MEDS: Prochlorperazine Edisylate 10 MG in Sodium Chloride 0.9% 50 ML IVPB PRN (16:55)
[2021-04-25] MEDS: Cyclobenzaprine 10 MG TAB PO PRN (20:48)
[2021-04-26] MEDS ORDERED: Metoprolol Tartrate 5 MG/5 ML VIAL IVP SCH ×2 (02:45→23:45)
[2021-04-26] MEDS: HYDROcodone/Acetaminophen 5/325 mg Tablet PO PRN ×5 (03:02→22:36)
[2021-04-26] MEDS: Sodium Chloride 0.9% 1,000 ML IV SCH ×2 (03:03→14:41)
[2021-04-26 06:44] LABS: INR-International Normal Ratio 2.5
[2021-04-26] MEDS: methylPREDNISolone 4 mg Tablet PO SCH (08:41)
[2021-04-26] MEDS: NIFEdipine XL 60 MG TAB PO SCH (08:41)
[2021-04-26] MEDS: Ondansetron PF 4 MG/2 ML Vial IVP PRN ×2 (08:41→18:29)
[2021-04-26] MEDS: Gabapentin 300 MG CAP PO SCH ×2 (08:42→22:37)
[2021-04-26] MEDS: Pilocarpine 5 MG TAB PO SCH ×3 (08:42→22:37)
[2021-04-26] MEDS: Bupropion 150 MG XL TAB PO SCH (08:42)
[2021-04-26] MEDS: Hydroxychloroquine Sulfate 200 MG TAB PO SCH ×2 (08:42→22:37)
[2021-04-26 10:22] LABS: Hemoglobin 10.1 g/dL (12.0-16.0); Mean Corpuscular HGB CONC 30.6 g/dL (32.0-36.0); Mean Corpuscular Hemoglobin 29.8 pg (27.0-31.0); Mean Corpuscular Volume 97.3 fL (78.0-98.0); Mean Platelet Volume 5.9 fL (7.4-10.4); Platelet Count 415 thou/uL (130-400); RBC Distribution Width 13.2 % (11.5-14.5); White Blood Cell (WBC) Count 9.7 thou/uL (4.8-10.8)
[2021-04-26 10:45] LABS: Anion Gap 9 mmol/L (10-20); BUN (Urea Nitrogen) 11 mg/dL (7.0-18.7); Calc. Creatinine Clearance 158 mL/min (70-130); Calcium 8.3 mg/dL (7.8-10.44); Carbon Dioxide 22 mmol/L (22-29); Chloride 109 mmol/L (98-107); Glucose 79 mg/dL (70-105); Potassium 3.2 mmol/L (3.5-5.1); Sodium 137 mmol/L (136-145)
[2021-04-26] MEDS ORDERED: Potassium Chloride 20 MEQ TAB PO SCH (13:00)
[2021-04-26] MEDS ORDERED: Morphine 4 MG/ML VIAL SLOW IVP PRN (15:48)
[2021-04-26] MEDS ORDERED: Pregabalin 25 MG CAP PO PRN (17:12)
[2021-04-26] MEDS: Warfarin Sodium 2 MG TAB PO SCH (17:14)
[2021-04-26] MEDS ORDERED: methylPREDNISolone Sod Succ 40 MG VIAL IVP SCH (17:15)
[2021-04-26] MEDS ORDERED: methylPREDNISolone Sod Succ 1 GM in Sodium Chloride 0.9% 100 ML IVPB SCH (18:00)
[2021-04-27] MEDS: HYDROcodone/Acetaminophen 5/325 mg Tablet PO PRN ×5 (02:39→21:54)
[2021-04-27] MEDS: Melatonin 3 MG TAB PO SCH ×2 (02:48→05:47)
[2021-04-27 06:09] LABS: INR-International Normal Ratio 2.3; Prothrombin Time 25.6 sec (12.0-14.7)
[2021-04-27] MEDS: Gabapentin 300 MG CAP PO SCH ×2 (09:18→21:52)
[2021-04-27] MEDS: Bupropion 150 MG XL TAB PO SCH (09:18)
[2021-04-27] MEDS: Pilocarpine 5 MG TAB PO SCH ×3 (09:19→21:51)
[2021-04-27] MEDS: methylPREDNISolone 4 mg Tablet PO SCH (09:19)
[2021-04-27] MEDS: Hydroxychloroquine Sulfate 200 MG TAB PO SCH ×2 (09:21→21:52)
[2021-04-27] MEDS: NIFEdipine XL 60 MG TAB PO SCH (09:38)
[2021-04-27] MEDS: Warfarin Sodium 2 MG TAB PO SCH (16:52)
[2021-04-27] MEDS ORDERED: Metoprolol Tartrate 25 MG TAB PO SCH (17:30)
[2021-04-27 18:25] LABS: Magnesium 1.6 mg/dL (1.6-2.6); Potassium 3.8 mmol/L (3.5-5.1)
[2021-04-28] MEDS ORDERED: Melatonin 3 MG TAB PO SCH (00:50)
[2021-04-28] MEDS: HYDROcodone/Acetaminophen 5/325 mg Tablet PO PRN ×5 (05:35→22:30)
[2021-04-28 05:58] LABS: INR-International Normal Ratio 2.5; Prothrombin Time 27.2 sec (12.0-14.7)
[2021-04-28] MEDS: NIFEdipine XL 60 MG TAB PO SCH (08:41)
[2021-04-28] MEDS: Bupropion 150 MG XL TAB PO SCH (08:41)
[2021-04-28] MEDS: Metoprolol Tartrate 25 MG TAB PO SCH ×2 (08:41→22:29)
[2021-04-28] MEDS: Hydroxychloroquine Sulfate 200 MG TAB PO SCH ×2 (08:42→22:31)
[2021-04-28] MEDS: Gabapentin 300 MG CAP PO SCH ×2 (08:42→22:30)
[2021-04-28] MEDS: Ondansetron PF 4 MG/2 ML Vial IVP PRN ×2 (09:53→18:30)
[2021-04-28] MEDS: Pilocarpine 5 MG TAB PO SCH ×3 (09:53→22:31)
[2021-04-28] MEDS: methylPREDNISolone 4 mg Tablet PO SCH (09:53)
[2021-04-28] MEDS: Warfarin Sodium 2 MG TAB PO SCH (17:02)
[2021-04-28] MEDS ORDERED: valACYclovir 500 MG TAB PO SCH (18:30)
[2021-04-29] MEDS: HYDROcodone/Acetaminophen 5/325 mg Tablet PO PRN ×5 (03:51→21:18)
[2021-04-29 06:46] LABS: INR-International Normal Ratio 2.5; Prothrombin Time 27.4 sec (12.0-14.7)
[2021-04-29] MEDS: Gabapentin 300 MG CAP PO SCH ×2 (09:06→21:18)
[2021-04-29] MEDS: Metoprolol Tartrate 25 MG TAB PO SCH (09:08)
[2021-04-29] MEDS: Bupropion 150 MG XL TAB PO SCH (09:08)
[2021-04-29] MEDS: NIFEdipine XL 60 MG TAB PO SCH (09:08)
[2021-04-29] MEDS: Pilocarpine 5 MG TAB PO SCH ×3 (09:09→21:19)
[2021-04-29] MEDS: valACYclovir 500 MG TAB PO SCH ×3 (09:10→21:19)
[2021-04-29] MEDS: methylPREDNISolone 4 mg Tablet PO SCH (09:11)
[2021-04-29] MEDS: Hydroxychloroquine Sulfate 200 MG TAB PO SCH ×2 (09:11→21:19)
[2021-04-29] MEDS: Cyclobenzaprine 10 MG TAB PO PRN (09:17)
[2021-04-29] MEDS: Ondansetron ODT 4 MG TAB PO PRN (10:03)
[2021-04-29] MEDS: SUMAtriptan Succinate 50 MG TAB PO PRN (10:04)
[2021-04-29] MEDS: Ondansetron PF 4 MG/2 ML Vial IVP PRN (12:04)
[2021-04-29 12:27] LABS: SARS-CoV-2 PCR by NAA Not Detected (NotDetected)
[2021-04-29 14:35] VITALS: BMI 23.0
[2021-04-29] MEDS: Warfarin Sodium 2 MG TAB PO SCH (17:12)
[2021-04-29] MEDS: Prochlorperazine Edisylate 10 MG in Sodium Chloride 0.9% 50 ML IVPB PRN (19:27)
[2021-04-29] MEDS: diphenhydrAMINE 25 MG in Sodium Chloride 0.9% 50 ML IVPB PRN (20:09)
[2021-04-29] MEDS: Metoprolol Tartrate 50 MG TAB PO SCH (21:18)
[2021-04-30] MEDS: HYDROcodone/Acetaminophen 5/325 mg Tablet PO PRN ×6 (01:36→23:41)
[2021-04-30] MEDS: Hydroxychloroquine Sulfate 200 MG TAB PO SCH ×2 (08:46→20:04)
[2021-04-30] MEDS: Metoprolol Tartrate 50 MG TAB PO SCH ×2 (08:46→20:04)
[2021-04-30] MEDS: Gabapentin 300 MG CAP PO SCH ×2 (08:46→20:04)
[2021-04-30] MEDS: Bupropion 150 MG XL TAB PO SCH (08:46)
[2021-04-30] MEDS: NIFEdipine XL 60 MG TAB PO SCH (08:47)
[2021-04-30] MEDS: Pilocarpine 5 MG TAB PO SCH ×3 (08:47→20:04)
[2021-04-30] MEDS: valACYclovir 500 MG TAB PO SCH (08:47)
[2021-04-30] MEDS: methylPREDNISolone 4 mg Tablet PO SCH (08:47)
[2021-04-30] MEDS ORDERED: methylPREDNISolone Sod Succ 40 MG VIAL IVP SCH (09:00)
[2021-04-30] MEDS: Ondansetron PF 4 MG/2 ML Vial IVP PRN ×2 (09:45→19:02)
[2021-04-30] MEDS ORDERED: methylPREDNISolone Sod Succ 1 GM in Sodium Chloride 0.9% 250 ML 250 ML IVPB SCH (10:30)
[2021-04-30] MEDS: Warfarin Sodium 2 MG TAB PO SCH (17:12)
[2021-04-30 18:03] LABS: Hemoglobin 11.7 g/dL (12.0-16.0); Mean Corpuscular Hemoglobin 30.9 pg (27.0-31.0); Mean Corpuscular Volume 96.3 fL (78.0-98.0); Mean Platelet Volume 5.8 fL (7.4-10.4); Platelet Count 590 thou/uL (130-400); RBC Distribution Width 13.5 % (11.5-14.5); White Blood Cell (WBC) Count 16.3 thou/uL (4.8-10.8)
[2021-04-30 18:22] LABS: ALT (SGPT) 15 U/L (8-55); AST (SGOT) 13 U/L (5-34); Albumin 3.7 g/dL (3.5-5.0); Alkaline Phosphatase 70 U/L (40-110); Anion Gap 13 mmol/L (10-20); BUN (Urea Nitrogen) 14 mg/dL (7.0-18.7); Bilirubin, Total 0.4 mg/dL (0.2-1.2); Calc. Creatinine Clearance 122 mL/min (70-130); Calcium 9.7 mg/dL (7.8-10.44); Carbon Dioxide 24 mmol/L (22-29); Chloride 103 mmol/L (98-107); Globulin 3.9 g/dL (2.4-3.5); Glucose 166 mg/dL (70-105); Potassium 4.6 mmol/L (3.5-5.1); Protein, Total 7.6 g/dL (6.0-8.3); Sodium 135 mmol/L (136-145)
[2021-04-30] MEDS: Melatonin 3 MG TAB PO PRN (22:38)
[2021-04-30] MEDS: diphenhydrAMINE 25 MG in Sodium Chloride 0.9% 50 ML IVPB PRN (22:38)
[2021-05-01] MEDS: Transdermal Patch Removal TOP SCH (05:51)
[2021-05-01] MEDS: Bupropion 150 MG XL TAB PO SCH (08:20)
[2021-05-01] MEDS: Hydroxychloroquine Sulfate 200 MG TAB PO SCH ×2 (08:20→21:12)
[2021-05-01] MEDS: NIFEdipine XL 60 MG TAB PO SCH (08:21)
[2021-05-01] MEDS: Metoprolol Tartrate 50 MG TAB PO SCH ×2 (08:21→21:12)
[2021-05-01] MEDS: methylPREDNISolone 4 mg Tablet PO SCH (08:21)
[2021-05-01] MEDS: Gabapentin 300 MG CAP PO SCH ×2 (08:22→21:11)
[2021-05-01] MEDS: HYDROcodone/Acetaminophen 5/325 mg Tablet PO PRN ×4 (08:22→21:12)
[2021-05-01] MEDS: Ondansetron PF 4 MG/2 ML Vial IVP PRN ×3 (08:23→21:11)
[2021-05-01] MEDS: Pilocarpine 5 MG TAB PO SCH ×3 (11:31→21:12)
[2021-05-01] MEDS ORDERED: traMADol HCl 50 MG TAB PO PRN (14:27)
[2021-05-01] MEDS: Warfarin Sodium 2 MG TAB PO SCH (16:16)
[2021-05-01] MEDS ORDERED: Lidocaine 5% Patch TD SCH (17:30)
[2021-05-01] MEDS: Melatonin 3 MG TAB PO PRN (21:12)
[2021-05-01] MEDS: diphenhydrAMINE 25 MG in Sodium Chloride 0.9% 50 ML IVPB PRN (22:09)
[2021-05-02] MEDS: Transdermal Patch Removal TOP SCH ×2 (01:31→03:27)
[2021-05-02] MEDS: HYDROcodone/Acetaminophen 5/325 mg Tablet PO PRN ×4 (04:51→18:51)
[2021-05-02] MEDS: Ondansetron PF 4 MG/2 ML Vial IVP PRN ×3 (04:54→20:09)
[2021-05-02 05:23] LABS: INR-International Normal Ratio 2.3
[2021-05-02] MEDS: Hydroxychloroquine Sulfate 200 MG TAB PO SCH ×2 (08:55→20:09)
[2021-05-02] MEDS: Bupropion 150 MG XL TAB PO SCH (08:55)
[2021-05-02] MEDS: NIFEdipine XL 60 MG TAB PO SCH (08:55)
[2021-05-02] MEDS: methylPREDNISolone 4 mg Tablet PO SCH (08:56)
[2021-05-02] MEDS: Gabapentin 300 MG CAP PO SCH ×2 (08:56→20:09)
[2021-05-02] MEDS: Pilocarpine 5 MG TAB PO SCH ×3 (08:56→20:09)
[2021-05-02] MEDS: Metoprolol Tartrate 50 MG TAB PO SCH ×2 (08:56→20:09)
[2021-05-02] MEDS: Lidocaine 5% Patch TD SCH ×2 (08:58→09:05)
[2021-05-02] MEDS: diphenhydrAMINE 25 MG in Sodium Chloride 0.9% 50 ML IVPB PRN ×2 (13:54→20:08)
[2021-05-02] MEDS: Warfarin Sodium 2 MG TAB PO SCH (16:57)
[2021-05-02] MEDS: Melatonin 3 MG TAB PO PRN (20:09)
[2021-05-03] MEDS: HYDROcodone/Acetaminophen 5/325 mg Tablet PO PRN ×4 (03:48→21:35)
[2021-05-03 06:23] LABS: Anion Gap 15 mmol/L (10-20); BUN (Urea Nitrogen) 15 mg/dL (7.0-18.7); Calc. Creatinine Clearance 123 mL/min (70-130); Calcium 9.6 mg/dL (7.8-10.44); Carbon Dioxide 21 mmol/L (22-29); Chloride 104 mmol/L (98-107); Glucose 107 mg/dL (70-105); Magnesium 1.6 mg/dL (1.6-2.6); Phosphorus 4.3 mg/dL (2.3-4.7); Potassium 3.8 mmol/L (3.5-5.1); Sodium 136 mmol/L (136-145)
[2021-05-03 06:26] LABS: Band 1 % (5-11); Hemoglobin 11.5 g/dL (12.0-16.0); Lymphocytes 27 % (21-51); MDiff Complete? YES; Mean Corpuscular HGB CONC 31.2 g/dL (32.0-36.0); Mean Corpuscular Hemoglobin 30.6 pg (27.0-31.0); Mean Corpuscular Volume 97.8 fL (78.0-98.0); Mean Platelet Volume 5.6 fL (7.4-10.4); Monocytes 10 % (0-10); Neutrophil 62 % (42-75); Platelet Count 614 thou/uL (130-400); Platelet Morphology Comment Appears Increased; RBC Distribution Width 13.4 % (11.5-14.5); RBC Morphology Normal; Red Blood Cell (RBC) Count 3.77 mill/uL (4.20-5.40); White Blood Cell (WBC) Count 22.9 thou/uL (4.8-10.8)
[2021-05-03] MEDS: NIFEdipine XL 60 MG TAB PO SCH (09:22)
[2021-05-03] MEDS: Gabapentin 300 MG CAP PO SCH ×2 (09:22→21:35)
[2021-05-03] MEDS: Metoprolol Tartrate 50 MG TAB PO SCH ×2 (09:23→21:34)
[2021-05-03] MEDS: methylPREDNISolone 4 mg Tablet PO SCH (09:23)
[2021-05-03] MEDS: Bupropion 150 MG XL TAB PO SCH (09:23)
[2021-05-03] MEDS: Hydroxychloroquine Sulfate 200 MG TAB PO SCH ×2 (09:24→21:36)
[2021-05-03] MEDS: Pilocarpine 5 MG TAB PO SCH ×3 (09:24→21:34)
[2021-05-03] MEDS: Lidocaine 5% Patch TD SCH (09:24)
[2021-05-03] MEDS: diphenhydrAMINE 25 MG in Sodium Chloride 0.9% 50 ML IVPB PRN ×3 (09:25→22:00)
[2021-05-03] MEDS: Ondansetron PF 4 MG/2 ML Vial IVP PRN (14:32)
[2021-05-03] MEDS: Warfarin Sodium 2 MG TAB PO SCH (16:03)
[2021-05-03] MEDS: SUMAtriptan Succinate 50 MG TAB PO PRN (18:39)
[2021-05-03] MEDS: Melatonin 3 MG TAB PO PRN (21:34)
[2021-05-04] MEDS: Cyclobenzaprine 10 MG TAB PO PRN (00:11)
[2021-05-04] MEDS: HYDROcodone/Acetaminophen 5/325 mg Tablet PO PRN ×4 (01:29→22:12)
[2021-05-04] MEDS: SUMAtriptan Succinate 50 MG TAB PO PRN (02:47)
[2021-05-04 05:32] LABS: #Eosinphils 0.2 thou/uL (0.0-0.7); #Monocytes 2.3 thou/uL (0.11-0.59); #Neutrophils 14.5 thou/uL (1.40-6.50); %Basophils 0.2 % (0.0-1.0); %Eosinophils 0.7 % (0.0-10.0); %Lymphocytes 19.1 % (21.0-51.0); Hemoglobin 11.9 g/dL (12.0-16.0); Mean Corpuscular HGB CONC 30.9 g/dL (32.0-36.0); Mean Corpuscular Hemoglobin 30.1 pg (27.0-31.0); Mean Corpuscular Volume 97.3 fL (78.0-98.0); Mean Platelet Volume 5.6 fL (7.4-10.4); Platelet Count 502 thou/uL (130-400); RBC Distribution Width 13.5 % (11.5-14.5); Red Blood Cell (RBC) Count 3.96 mill/uL (4.20-5.40)
[2021-05-04 05:45] LABS: Anion Gap 14 mmol/L (10-20); BUN (Urea Nitrogen) 13 mg/dL (7.0-18.7); Calc. Creatinine Clearance 125 mL/min (70-130); Calcium 9.1 mg/dL (7.8-10.44); Carbon Dioxide 21 mmol/L (22-29); Chloride 104 mmol/L (98-107); Glucose 78 mg/dL (70-105); Phosphorus 4.4 mg/dL (2.3-4.7); Potassium 3.8 mmol/L (3.5-5.1); Sodium 135 mmol/L (136-145)
[2021-05-04 06:11] LABS: Magnesium 1.7 mg/dL (1.6-2.6)
[2021-05-04] MEDS: Transdermal Patch Removal TOP SCH (06:17)
[2021-05-04] MEDS: NIFEdipine XL 60 MG TAB PO SCH (08:15)
[2021-05-04] MEDS: Bupropion 150 MG XL TAB PO SCH (08:16)
[2021-05-04] MEDS: Metoprolol Tartrate 50 MG TAB PO SCH ×2 (08:17→22:12)
[2021-05-04] MEDS: Gabapentin 300 MG CAP PO SCH ×2 (08:17→22:12)
[2021-05-04] MEDS: Hydroxychloroquine Sulfate 200 MG TAB PO SCH ×2 (08:17→22:13)
[2021-05-04] MEDS: Ondansetron PF 4 MG/2 ML Vial IVP PRN ×2 (08:18→15:04)
[2021-05-04] MEDS: Lidocaine 5% Patch TD SCH (08:18)
[2021-05-04] MEDS: methylPREDNISolone 4 mg Tablet PO SCH (08:18)
[2021-05-04] MEDS: Pilocarpine 5 MG TAB PO SCH ×3 (11:18→22:13)
[2021-05-04 12:08] LABS: SARS-CoV-2 NAA Rapid Test Not Detected (NotDetected)
[2021-05-04] MEDS: diphenhydrAMINE 50 MG/ML VIAL IVP SCH (17:17)
[2021-05-04] MEDS: Warfarin Sodium 2 MG TAB PO SCH (17:17)
[2021-05-04] MEDS: Prochlorperazine Edisylate 10 MG in Sodium Chloride 0.9% 50 ML IVPB SCH (17:18)
[2021-05-04] MEDS: Melatonin 3 MG TAB PO PRN (22:13)
[2021-05-05] MEDS: diphenhydrAMINE 50 MG/ML VIAL IVP SCH ×3 (00:31→11:43)
[2021-05-05] MEDS: Prochlorperazine Edisylate 10 MG in Sodium Chloride 0.9% 50 ML IVPB SCH ×2 (00:31→11:42)
[2021-05-05] MEDS: HYDROcodone/Acetaminophen 5/325 mg Tablet PO PRN ×2 (02:49→09:12)
[2021-05-05 06:21] LABS: #Basophils 0.1 thou/uL (0.0-0.2); #Eosinphils 0.4 thou/uL (0.0-0.7); #Lymphocytes 3.5 thou/uL (1.20-3.40); #Monocytes 2.1 thou/uL (0.11-0.59); #Neutrophils 11.3 thou/uL (1.40-6.50); %Basophils 0.4 % (0.0-1.0); %Eosinophils 2.1 % (0.0-10.0); %Neutrophils 65.6 % (42.0-75.0); Hemoglobin 11.6 g/dL (12.0-16.0); Mean Corpuscular HGB CONC 31.7 g/dL (32.0-36.0); Mean Corpuscular Hemoglobin 30.6 pg (27.0-31.0); Mean Corpuscular Volume 96.5 fL (78.0-98.0); Platelet Count 457 thou/uL (130-400); RBC Distribution Width 13.5 % (11.5-14.5); Red Blood Cell (RBC) Count 3.79 mill/uL (4.20-5.40); White Blood Cell (WBC) Count 17.2 thou/uL (4.8-10.8)
[2021-05-05 06:26] LABS: INR-International Normal Ratio 2.1
[2021-05-05] MEDS: Transdermal Patch Removal TOP SCH (06:27)
[2021-05-05 06:32] LABS: Anion Gap 14 mmol/L (10-20); BUN (Urea Nitrogen) 14 mg/dL (7.0-18.7); Calc. Creatinine Clearance 135 mL/min (70-130); Carbon Dioxide 23 mmol/L (22-29); Chloride 103 mmol/L (98-107); Glucose 81 mg/dL (70-105); Magnesium 1.8 mg/dL (1.6-2.6); Phosphorus 3.8 mg/dL (2.3-4.7); Potassium 3.7 mmol/L (3.5-5.1); Sodium 136 mmol/L (136-145)
[2021-05-05] MEDS: Metoprolol Tartrate 50 MG TAB PO SCH (09:15)
[2021-05-05] MEDS: methylPREDNISolone 4 mg Tablet PO SCH (09:15)
[2021-05-05] MEDS: Pilocarpine 5 MG TAB PO SCH (09:15)
[2021-05-05] MEDS: NIFEdipine XL 60 MG TAB PO SCH (09:15)
[2021-05-05] MEDS: Gabapentin 300 MG CAP PO SCH (09:16)
[2021-05-05] MEDS: Bupropion 150 MG XL TAB PO SCH (09:17)
[2021-05-05] MEDS: Lidocaine 5% Patch TD SCH (09:17)
[2021-05-05] MEDS: Hydroxychloroquine Sulfate 200 MG TAB PO SCH (09:17)
[2021-05-05 11:53] VITALS: BP 121/80; TEMP 97.8
[2021-05-06 18:49] LABS: ANA Symphony (Qualitative) POSITIVE (Negative); ANA Symphony (Quantitative) 1.2 Ratio (< 0.7 Negative); CENP IgG Antibody Less than 0.4 EliAU/mL (<7 Negative); Jo-1 IgG Antibody Less than 0.3 EliAU/mL (<7 Negative); RNP70 IgG Antibody 0.6 EliAU/mL (<7 Negative); SSA/Ro IgG Antibody 0.4 EliAU/mL (<7 Negative); SSB/La IgG Antibody 0.6 EliAU/mL (<7 Negative); dsDNA IgG Antibody 6.4 IU/mL (<10 Negative)
== END 2021-05-05 14:45 | DRG 813 ==
LOC: ERS 21:48 → ERHOLD 04-16 00:07 → NEURO 04-16 12:10 → OBSVTOIN 04-18 06:45
PROVIDERS: ADMIT Student in an Organized Health Care Education/Training Program; ATTEND Family Medicine
PROC: 30233K1 Transfusion of Nonautologous Frozen Plasma into Peripheral Vein, Percutaneous Approach (ICD-10-PCS; principal; 2021-04-16)
DX: D68.32 Hemorrhagic disorder due to extrinsic circulating anticoagulants (principal); S32.010A Wedge compression fracture of first lumbar vertebra, initial encounter for closed fracture; D68.61 Antiphospholipid syndrome; I16.1 Hypertensive emergency; G93.40 Encephalopathy, unspecified; S32.020A Wedge compression fracture of second lumbar vertebra, initial encounter for closed fracture; G35 Multiple sclerosis; Z20.822 Contact with and (suspected) exposure to COVID-19; M32.9 Systemic lupus erythematosus, unspecified; D72.829 Elevated white blood cell count, unspecified; D53.9 Nutritional anemia, unspecified; W19.XXXA Unspecified fall, initial encounter; M35.00 Sjogren syndrome, unspecified; N20.0 Calculus of kidney; G43.519 Persistent migraine aura without cerebral infarction, intractable, without status migrainosus; T45.515A Adverse effect of anticoagulants, initial encounter; D49.7 Neoplasm of unspecified behavior of endocrine glands and other parts of nervous system; I73.00 Raynaud's syndrome without gangrene; H53.2 Diplopia; Z88.2 Allergy status to sulfonamides; Z88.1 Allergy status to other antibiotic agents; Z79.02 Long term (current) use of antithrombotics/antiplatelets; Z79.82 Long term (current) use of aspirin; Z79.899 Other long term (current) drug therapy; Z87.440 Personal history of urinary (tract) infections; Z89.511 Acquired absence of right leg below knee
CPT/HCPCS: 0240U; 36415; 36416; 36430; 70450; 70491; 70551; 70552; 71045; 72141; 72148; 74176; 80048; 80053; 80061; 81003; 82306; 83036; 83735; 84100; 84132; 84484; 84703; 85025; 85027; 85610; 85730; 86038; 86160; 86225; 86235; 86850; 86900; 86901; 87040; 87086; 93005; 93010; 93306; 93880; 93923; 96365; 96367; 96375; 96376; A9579; G0378; J0360; J0780; J1100; J1200; J2270; J2405; J2765; J2930; J3430; J3475; J3490; J7050; J7509; P9059; Q0162; U0003; U0005

== ENCOUNTER 2021-08-20 00:08 | Emergency (ER) | payer MEDICARE, MEDICAID ==
[2021-08-20 00:29] LABS: #Basophils 0.1 thou/uL (0.0-0.2); #Eosinphils 0.1 thou/uL (0.0-0.7); #Lymphocytes 2.1 thou/uL (1.20-3.40); #Monocytes 1.4 thou/uL (0.11-0.59); #Neutrophils 15.8 thou/uL (1.40-6.50); %Basophils 0.3 % (0.0-1.0); %Eosinophils 0.4 % (0.0-10.0); %Lymphocytes 10.9 % (21.0-51.0); %Monocytes 7.2 % (0.0-10.0); %Neutrophils 81.2 % (42.0-75.0); Hemoglobin 14.2 g/dL (12.0-16.0); Mean Corpuscular HGB CONC 31.3 g/dL (32.0-36.0); Mean Corpuscular Hemoglobin 28.6 pg (27.0-31.0); Mean Corpuscular Volume 91.4 fL (78.0-98.0); Mean Platelet Volume 6.4 fL (7.4-10.4); Platelet Count 542 thou/uL (130-400); RBC Distribution Width 15.8 % (11.5-14.5); Red Blood Cell (RBC) Count 4.97 mill/uL (4.20-5.40); White Blood Cell (WBC) Count 19.5 thou/uL (4.8-10.8)
[2021-08-20] MEDS ORDERED: Ondansetron PF 4 MG/2 ML Vial ONE (00:32)
[2021-08-20 00:37] LABS: INR-International Normal Ratio 1.3; Prothrombin Time 16.2 sec (12.0-14.7)
[2021-08-20 00:38] LABS: PTT 37.3 sec (22.9-36.1)
[2021-08-20] MEDS ORDERED: Morphine 4 MG/ML VIAL ONE (01:37)
[2021-08-20 01:42] LABS: BHCG - Serum Negative (NEGATIVE); Pregs Control Background? CLEAR/WHITE (CLR/WHITE); Pregs Control Bar Appear? YES (CONTROL BAR)
[2021-08-20 01:49] LABS: Albumin 3.9 g/dL (3.5-5.0)
[2021-08-20 01:51] LABS: Calcium 9.1 mg/dL (7.8-10.44); Chloride 103 mmol/L (98-107); Sodium 133 mmol/L (136-145)
[2021-08-20 01:52] LABS: Globulin 3.8 g/dL (2.4-3.5); Glucose 103 mg/dL (70-105); Protein, Total 7.7 g/dL (6.0-8.3)
[2021-08-20 01:53] LABS: Anion Gap 17 mmol/L (10-20); Carbon Dioxide 17 mmol/L (22-29)
[2021-08-20 01:54] LABS: Bilirubin, Total 0.4 mg/dL (0.2-1.2)
[2021-08-20 01:55] LABS: Alkaline Phosphatase 69 U/L (40-110); Calc. Creatinine Clearance 0 mL/min (70-130)
[2021-08-20 01:56] LABS: BUN (Urea Nitrogen) 11 mg/dL (7.0-18.7)
[2021-08-20 01:57] LABS: AST (SGOT) 8 U/L (5-34)
[2021-08-20 01:58] LABS: ALT (SGPT) 9 U/L (8-55); Lipase 33 U/L (8-78)
[2021-08-20] MEDS ORDERED: Haloperidol Lactate 5 MG/ML VIAL ONE (02:03)
[2021-08-20] MEDS ORDERED: Warfarin Sodium 3 MG TAB PO SCH (02:15)
[2021-08-20] MEDS ORDERED: Iopamidol 370 76% 100 ML VIAL ONE (15:56)
== END 2021-08-20 03:30 | disposition home or self-care (01) ==
LOC: ERS 00:08
DX: R07.89 Other chest pain (principal); R11.2 Nausea with vomiting, unspecified; R00.0 Tachycardia, unspecified; K31.84 Gastroparesis; M32.9 Systemic lupus erythematosus, unspecified; M35.00 Sjogren syndrome, unspecified; N39.0 Urinary tract infection, site not specified; Z87.442 Personal history of urinary calculi; Z79.82 Long term (current) use of aspirin; Z79.01 Long term (current) use of anticoagulants; Z79.899 Other long term (current) drug therapy
CPT/HCPCS: 36415; 71275; 80053; 83605; 83690; 83880; 84443; 84484; 84703; 85025; 85610; 85730; 87040; 93005; 96361; 96374; 96375; J1630; J2270; J2405